=== PATIENT | female | born 1965 | race Caucasian/White ===

== ENCOUNTER 2020-06-19 07:35 | Day surgery (SDC) | payer BC ==
--- NOTE | 2020-06-19 07:40 | NUR ---
PT ARRIVED TO DAY SURGERY WALKING INDEPENDENTLY ACCOMPANIED BY AND PLACED IN RM 8
--- NOTE | 2020-06-19 09:27 | NUR ---
06/19/20 0927 Sheets,[place] 0856 PT ARRIVED ON 3L VIA NC, PT WAKES EASILY AND IS REORIENTED TO PACU. VSS. 0900 MD AT BEDSIDE TALKING WITH PT, O2 REMOVED. 909 PT SIPPING WATER AND DENIES CONCERNS. 924 DC INSTRUCTIOSN GIVEN AND PT GETTING DRESSED, PT PULLING CAR UP.
--- NOTE | 2020-06-20 08:35 | OR ---
[facility] [address] [place], [place] [address] Signed DATE OF OPERATION: 06/19/2020 SURGEON: Rahul Eli MD PREOPERATIVE DIAGNOSIS: Colon screening. POSTOPERATIVE DIAGNOSIS: Normal colonoscopy to cecum and normal ilium. PROCEDURE: Total colonoscopy to cecum with intubation of ileum. ANESTHESIA: Intravenous sedation, fentanyl 150 mcg, Versed 7 mg. INDICATION: This 55-year-old white woman is a patient of Dr. Radha Grace, who has referred her for screening colonoscopy. She has never had colonoscopy in the past. She has no symptoms of bleeding, diarrhea or constipation currently and has no family history of colon cancer. She is admitted to undergo screening colonoscopy. She understands the risks of bleeding, infection, and perforation. FINDINGS: The prep was excellent. A MiraLAX prep was used. Complete colonoscopy was undertaken to the cecum and intubation of the ileum was accomplished as well. She had no signs of polyps, diverticular formation, colitis, or cancer. Retroflex view was normal as well of the rectum. DESCRIPTION OF PROCEDURE: The patient was brought to the endoscopy suite and placed in lateral decubitus position, given intravenous sedation to the point of slurred speech and nystagmus with full cardiopulmonary monitoring. Digital rectal examination was normal. An Olympus video colonoscope was passed in the rectum and manipulated throughout the colon ultimately intubating the cecum. The ileocecal valve and appendiceal orifice were normal. With various manipulations, the scope was passed into the terminal ileum and passed for several cm. The ileum appeared normal. Scope was carefully withdrawn and revisualization of the cecum undertaken. The scope was then withdrawn and careful examination upon withdrawal of scope showed no sign of polyps, diverticular formation, Electronically Signed By: RAHUL ELI MD 06/20/20 0835 PATIENT NAME: MURPHY CONRAD OPERATIVE REPORT DATE OF : 67 REPORT #: [id number] PHYSICIAN: RAHUL ELI MD PCP: NO PRIMARY CARE PHYSICIAN REPORT IS CONFIDENTIAL AND NOT TO BE RELEASED WITHOUT AUTHORIZATION [facility] [address] [place], [place] [address] Signed colitis, or cancer. Retroflex view was normal as well. The scope was removed and the patient was taken to the recovery room in good condition. CONCLUDING DIAGNOSIS: Normal colon and ileum. PLAN: Recommend a repeat colonoscopy in 10 years based on current guidelines; sooner for colonoscopy if symptoms should occur. She will return to the ongoing care of Dr. Grace. MD MALORIE Bergman/MODL /[id number] cc: Radha Grace MD Copies: RADHA GRACE MD ~ Electronically Signed By: RAHUL ELI MD 06/20/20 0835 PATIENT NAME: MURPHY CONRAD OPERATIVE REPORT DATE OF : 67 REPORT #: [id number] PHYSICIAN: RAHUL ELI MD PCP: NO PRIMARY CARE PHYSICIAN REPORT IS CONFIDENTIAL AND NOT TO BE RELEASED WITHOUT AUTHORIZATION
== END 2020-06-19 09:37 | disposition home or self-care (01) ==
LOC: OPS 07:35 → DS 07:35 → OPS 08:30
PROVIDERS: ATTEND Surgery
PROC: 0DJD8ZZ Inspection of Lower Intestinal Tract, Via Natural or Artificial Opening Endoscopic (ICD-10-PCS; principal; 2020-06-19 08:30)
DX: Z12.11 Encounter for screening for malignant neoplasm of colon (principal); Z88.5 Allergy status to narcotic agent; Z79.899 Other long term (current) drug therapy; Z98.890 Other specified postprocedural states
CPT/HCPCS: 99153; G0500; J2250; J3010; J7121